=== PATIENT | female | born 1980 | race Two or more races ===

== ENCOUNTER 2020-01-08 05:03 | Emergency (ER) | payer OTHER ==
[~2020-01-08] VITALS: Ht 157.5 cm; Wt 65.9 kg
[2020-01-08 06:40] LABS: BASO % 0 % (0-3); EOS # 0.1 x10^3/uL (0.0-0.7); EOS % 1 % (0-3); HEMATOCRIT 38.2 % (36.0-47.0); HEMOGLOBIN 12.9 g/dL (12.0-15.5); LYMPH # 1.9 x10^3/uL (1.0-4.8); LYMPH % 19 % (24-48); MEAN CORPUSCULAR HEMOGLOBIN 30 pg (25-35); MEAN CORPUSCULAR HGB CONC 34 g/dL (31-37); MEAN CORPUSCULAR VOLUME 90 fL (79-100); MONO # 0.5 x10^3/uL (0.0-1.1); MONO % 5 % (0-9); NEUT # 7.7 x10^3/uL (1.8-7.7); NEUT % 75 % (31-73); PLATELET COUNT 365 x10^3/uL (140-400); RED BLOOD COUNT 4.23 x10^6/uL (3.50-5.40); RED CELL DISTRIBUTION WIDTH 14.1 % (11.5-14.5); WHITE BLOOD COUNT 10.2 x10^3/uL (4.0-11.0)
[2020-01-08 06:53] LABS: CALCIUM 8.9 mg/dL (8.5-10.1); CREATININE 0.6 mg/dL (0.6-1.0); GFR 111.9; POTASSIUM 3.8 mmol/L (3.5-5.1)
[2020-01-08 06:56] LABS: PROTHROMBIN TIME PATIENT 12.9 SEC (11.7-14.0)
[2020-01-08 07:04] LABS: ALBUMIN 3.6 g/dL (3.4-5.0); ALBUMIN/GLOBULIN RATIO 0.9 (1.0-1.7); TOTAL BILIRUBIN 0.2 mg/dL (0.2-1.0); TOTAL PROTEIN 7.6 g/dL (6.4-8.2)
--- NOTE | 2020-01-08 07:34 | RAD ---
INDICATION: Vaginal bleeding COMPARISON: None. TECHNIQUE: Grayscale and color ultrasound images uterus and adnexa. Transabdominal and transvaginal images obtained. Transvaginal images were needed to better visualize structures that were limited on transabdominal imaging. FINDINGS: Uterus: 110 x 60 x 60 mm. Endometrial Stripe: 13 mm there is some fluid within the cervical region with internal echoes. The bilateral ovaries are obscured by bowel gas. IMPRESSION: * There is some fluid within the cervical region and lower uterine segment with some internal echoes. Could be secondary to blood products. * No definite gestational sac or pole is seen within the endometrium. * The ovaries are obscured by bowel gas. Electronically signed by: Simon Meredith MD (01/08/2020 7:31 AM) [id number]
--- NOTE | 2020-01-08 07:40 | PHYS DOC ---
Past Medical History Past Medical History: No Pertinent History Past Surgical History: No Surgical History Smoking Status: Never Smoker Alcohol Use: None General Adult EDM: Chief Complaint: VAGINAL BLEEDING HPI: HPI: Patient is a 39-year-old G4, P3 who states she is approximately 12 weeks presents with vaginal bleeding and some lower abdominal discomfort. She states she is gone through 3 pads overnight. She denies any fever chills or sweats. She has had no dysuria. She had no trauma. [] Review of Systems: Review of Systems: Constitutional: Denies fever or chills. [] Eyes: Denies change in visual acuity. [] HENT: Denies nasal congestion or sore throat. [] Respiratory: Denies cough or shortness of breath. [] Cardiovascular: Denies chest pain or edema. [] GI: Denies abdominal pain, nausea, vomiting, bloody stools or diarrhea. [] : D Per HPI [] Musculoskeletal: Denies back pain or joint pain. [] Integument: Denies rash. [] Neurologic: Denies headache, focal weakness or sensory changes. [] Endocrine: Denies polyuria or polydipsia. [] Lymphatic: Denies swollen glands. [] Psychiatric: Denies depression or anxiety. [] Heart Score: Risk Factors: Risk Factors: DM, Current or recent (<one month) smoker, HTN, HLP, family history of CAD, obesity. Risk Scores: Score 0 - 3: 2.5% MACE over next 6 weeks - Discharge Home Score 4 - 6: 20.3% MACE over next 6 weeks - Admit for Clinical Observation Score 7 - 10: 72.7% MACE over next 6 weeks - Early Invasive Strategies Allergies: Allergies: Allergies Coded Allergies Type Severity Reaction Last Updated Verified No Known Drug Allergies 01/08/20 No Physical Exam: PE: Constitutional: Well developed, well nourished, no acute distress, non-toxic appearance. [] HENT: Normocephalic, atraumatic, bilateral external ears normal, oropharynx moist, no oral exudates, nose normal. [] Eyes: PERRLA, EOMI, conjunctiva normal, no discharge. [] Neck: Normal range of motion, no tenderness, supple, no stridor. [] Cardiovascular:Heart rate regular rhythm, no murmur [] Lungs & Thorax: Bilateral breath sounds clear to auscultation [] Abdomen: Bowel sounds normal, soft, no tenderness, no masses, no pulsatile m asses. [] Skin: Warm, dry, no erythema, no rash. [] Back: No tenderness, no CVA tenderness. [] Extremities: No tenderness, no cyanosis, no clubbing, ROM intact, no edema. [] Neurologic: Alert and oriented X 3, normal motor function, normal sensory function, no focal deficits noted. [] Psychologic: Affect normal, judgement normal, mood normal. [] Current Patient Data: Labs: Laboratory Tests Test 01/08/20 06:24 White Blood Count 10.2 x10^3/uL (4.0-11.0) Red Blood Count 4.23 x10^6/uL (3.50-5.40) Hemoglobin 12.9 g/dL (12.0-15.5) Hematocrit 38.2 % (36.0-47.0) Mean Corpuscular Volume 90 fL (79-100) Mean Corpuscular Hemoglobin 30 pg (25-35) Mean Corpuscular Hemoglobin Concent 34 g/dL (31-37) Red Cell Distribution Width 14.1 % (11.5-14.5) Platelet Count 365 x10^3/uL (140-400) Neutrophils (%) (Auto) 75 % (31-73) H Lymphocytes (%) (Auto) 19 % (24-48) L Monocytes (%) (Auto) 5 % (0-9) Eosinophils (%) (Auto) 1 % (0-3) Basophils (%) (Auto) 0 % (0-3) Neutrophils # (Auto) 7.7 x10^3/uL (1.8-7.7) Lymphocytes # (Auto) 1.9 x10^3/uL (1.0-4.8) Monocytes # (Auto) 0.5 x10^3/uL (0.0-1.1) Eosinophils # (Auto) 0.1 x10^3/uL (0.0-0.7) Basophils # (Auto) 0.0 x10^3/uL (0.0-0.2) Prothrombin Time 12.9 SEC (11.7-14.0) Prothrombin Time INR 1.0 (0.8-1.1) Maternal Serum HCG Beta Subunit 9356 mIU/mL (0-5) H Sodium Level 141 mmol/L (136-145) Potassium Level 3.8 mmol/L (3.5-5.1) Chloride Level 104 mmol/L (98-107) Carbon Dioxide Level 24 mmol/L (21-32) Anion Gap 13 (6-14) Blood Urea Nitrogen 9 mg/dL (7-20) Creatinine 0.6 mg/dL (0.6-1.0) Estimated GFR (Cockcroft-Gault) 111.9 BUN/Creatinine Ratio 15 (6-20) Glucose Level 108 mg/dL (70-99) H Calcium Level 8.9 mg/dL (8.5-10.1) Total Bilirubin 0.2 mg/dL (0.2-1.0) Aspartate Amino Transferase (AST) 12 U/L (15-37) L Alanine Aminotransferase (ALT) 16 U/L (14-59) Alkaline Phosphatase 54 U/L (46-116) Total Protein 7.6 g/dL (6.4-8.2) Albumin 3.6 g/dL (3.4-5.0) Albumin/Globulin Ratio 0.9 (1.0-1.7) L Laboratory Tests 01/08/20 06:24 Laboratory Tests 01/08/20 06:24 Vital Signs: Vital Signs Date Time Temp Pulse Resp B/P (MAP) Pulse Ox O2 Delivery O2 Flow Rate FiO2 01/08/20 05:49 98.4 86 16 124/59 (80) 100 Room Air 98.4 EKG: EKG: [] Radiology/Procedures: Radiology/Procedures: []PROCEDURE: OB <14 WKS W/TV INDICATION: Vaginal bleeding COMPARISON: None. TECHNIQUE: Grayscale and color ultrasound images uterus and adnexa. Transabdominal and transvaginal images obtained. Transvaginal images were needed to better visualize structures that were limited on transabdominal imaging. FINDINGS: Uterus: 110 x 60 x 60 mm. Endometrial Stripe: 13 mm there is some fluid within the cervical region with internal echoes. The bilateral ovaries are obscured by bowel gas. IMPRESSION: * There is some fluid within the cervical region and lower uterine segment with some internal echoes. Could be secondary to blood products. * No definite gestational sac or pole is seen within the endometrium. * The ovaries are obscured by bowel gas. Course & Med Decision Making: Course & Med Decision Making Pertinent Labs and Imaging studies reviewed. (See chart for details) [] Dragon Disclaimer: Dragon Disclaimer: This electronic medical record was generated, in whole or in part, using a voice recognition dictation system. Departure Departure Impression: Primary Impression: Spontaneous Disposition: HOME, SELF-CARE Condition: STABLE Referrals: NO PCP (PCP) Patient Instructions: Miscarriage Additional Instructions: Return to the emergency department with any new or concerning symptoms BRIGIDA WOODS DO January 08, 2020 07:40
[2020-01-08 08:00] VITALS: BP 113/57
== END 2020-01-08 08:11 | disposition home or self-care (01) ==
LOC: ER 05:03
DX: O03.9 Complete or unspecified spontaneous abortion without complication (principal); Z3A.12 12 weeks gestation of pregnancy
CPT/HCPCS: 36415; 76801; 76817; 80053; 84702; 85025; 85610; 86900; 86901; 99284

== ENCOUNTER → 2020-05-22 | Outpatient (CLI) | payer OTHER ==
[2020-05-22 15:34] LABS: BASO % 0 % (0-3); EOS # 0.1 x10^3/uL (0.0-0.7); EOS % 1 % (0-3); HEMATOCRIT 36.2 % (36.0-47.0); HEMOGLOBIN 12.2 g/dL (12.0-15.5); LYMPH # 2.9 x10^3/uL (1.0-4.8); LYMPH % 24 % (24-48); MEAN CORPUSCULAR HEMOGLOBIN 30 pg (25-35); MEAN CORPUSCULAR HGB CONC 34 g/dL (31-37); MEAN CORPUSCULAR VOLUME 90 fL (79-100); MONO # 0.6 x10^3/uL (0.0-1.1); MONO % 5 % (0-9); NEUT # 8.3 x10^3/uL (1.8-7.7); NEUT % 70 % (31-73); PLATELET COUNT 335 x10^3/uL (140-400); RED BLOOD COUNT 4.03 x10^6/uL (3.50-5.40); RED CELL DISTRIBUTION WIDTH 13.8 % (11.5-14.5); WHITE BLOOD COUNT 11.9 x10^3/uL (4.0-11.0)
== END | disposition home or self-care (01) ==
LOC: LAB 15:01
PROVIDERS: ATTEND Obstetrics & Gynecology
DX: Z32.01 Encounter for pregnancy test, result positive (principal); Z3A.00 Weeks of gestation of pregnancy not specified
CPT/HCPCS: 36415; 85025; 86592; 86703; 86762; 86850; 86900; 86901; 87340

== ENCOUNTER → 2020-09-15 | Outpatient (CLI) | payer OTHER ==
--- NOTE | 2020-09-15 17:34 | RAD ---
EXAM: OB ULTRASOUND, > 14 WEEKS HISTORY: Size and dates. COMPARISON: 01/08/2020. TECHNIQUE: Multiple grayscale images, color Doppler, and M-mode images of the uterus are obtained. FINDINGS: There is a single intrauterine gestation in cephalic presentation. There is placenta previa. The amou nt of amniotic fluid appears low normal. Amniotic fluid index is 7.6 cm. The cervical length is not well assessed due to placental location. Biometrical data: BPD = 5.53 cm for 22 weeks 6 days. HC = 20.20 cm for 22 weeks 2 days. AC = 17.16 cm for 22 weeks 1 days. FL = 3.74 cm for 21 weeks 6 days. HC/AC ratio = 1.18. Overall, the estimated sonographic gestational age is 22 weeks and 2 days for an estimated date of of 01/17/2021. The estimated weight is 476 g. A 4 chamber heart is identified with positive cardiac activity. The estimated heart rate is 160 beats per minute. Bilateral upper and lower extremities are identified. There is a three-vessel cord with cord insertion visualized. stomach and urinary bladder are identified. Both kidneys are seen. The spine and brain are unremarkable. No obvious anatomic abnormalities are identified. The maternal adnexal regions are obscured. IMPRESSION: 1. Single intrauterine fetus with a normal heart rate and gestational age patient ultrasound measurem ents of 22 weeks and 2 days. 2. Placenta previa. Short-term sonographic follow-up is recommended to assess for interval change. 3. Low normal NICK of 7.6 cm. Electronically signed by: Evi Steen MD (09/15/2020 5:32 PM) [id number]
== END ==
LOC: US 12:31
PROVIDERS: ATTEND Obstetrics & Gynecology
DX: O26.842 Uterine size-date discrepancy, second trimester (principal); Z3A.22 22 weeks gestation of pregnancy
CPT/HCPCS: 76805

== ENCOUNTER → 2020-11-15 | Outpatient (CLI) | payer OTHER ==
--- NOTE | 2020-11-16 15:15 | RAD ---
Limited OB ultrasound greater than 14 weeks 11/15/2020 Clinical History: Third trimester . Follow-up placenta previa. Technique: A real-time ultrasound examination of the gravid uterus was performed. Multiple images wer e obtained. Findings: Comparison study is dated 09/15/2020. There is a single living IUP. The fetus is in a cephalic position. cardiac and somatic activity is seen. The heart rate is 149 beats per minutes. The maternal cervix is closed. It measures 6 .34 cm in length. The placenta is posterior. The inferior edge of the placenta is again noted to exte nd across the internal cervical os consistent with placenta previa. This has not significantly change d since previous examination. The amniotic fluid volume is within normal limits. The NICK measures 11. 1 cm. Neither maternal ovary is visualized. The following measurements were obtained: BPD 7.64cm 30 weeks 5 days HC 28.03 cm 30weeks 5 days AC 28.39 cm 32weeks 3 days FL 522 cm 30 weeks 3 days The estimated gestational age by ultrasound on today's study is 31 weeks 1 days plus or minus a stand [place] deviation of 3 weeks. Since the previous examination there has been appropriate interval gr owth. The estimated weight is 1778 g +/- 263 g (3 lbs. 15 oz.). No abnormality is seen. Impression: 1. Single living IUP with an estimated gestational age by ultrasound of 31 weeks1 days +/- a standard deviation of 3 weeks. Since the previous examination there has been appropriate interval growt h. 2. The inferior edge of the posterior placenta is again noted to cover the internal cervical os consi stent with placenta previa. Electronically signed by: Pepe De Luna MD (11/16/2020 3:13 PM) [id number]
== END ==
LOC: US 12:08
PROVIDERS: ATTEND Obstetrics & Gynecology
DX: O09.93 Supervision of high risk pregnancy, unspecified, third trimester (principal); Z3A.31 31 weeks gestation of pregnancy
CPT/HCPCS: 76815